=== PATIENT | female | born 1975 | race Caucasian/White ===

== ENCOUNTER 2021-01-18 05:32 | Emergency (ER) | payer BC, SELFPAY ==
--- NOTE | ~2021-01-18 | XR_ITS ---
EXAMINATION: XR CHEST CLINICAL INFORMATION: Chest pain/pressure COMPARISON: None TECHNIQUE: Frontal view of the chest was obtained. FINDINGS: Cardiac leads overlie the chest. The lungs are well expanded. There is no focal consolidation, edema, or effusion. No pneumothorax. The cardiomediastinal silhouette is within normal limits. No acute osseous abnormality. XR/XR chest 1V IMPRESSION: Clear lungs.
[2021-01-18 05:40] VITALS: BP 129/94; PULSE 83; RESP 18; TEMP 36.9; O2SAT 96; BMI 31.8
--- NOTE | 2021-01-18 05:45 | ED.CHESTPAIN ---
HPI - Chest Pain General Chief Complaint: Chest Pain Stated Complaint: Chest pain Time Seen by Provider: 01/18/21 05:45 Related Data Allergies Allergy/AdvReac Type Severity Reaction Status Date / Time latex [LATEX] Allergy Intermediate HIVES,SWELL Unverified 08/08/20 14:58 ING bactrim Allergy Unknown hives Uncoded 04/11/14 00:00 PMFSH Past Medical History Medical History (Updated 01/18/21 @ 05:43 by Aminah Gordon) High cholesterol Surgical History (Updated 01/18/21 @ 05:43 by Aminah Gordon) Previous section Physical Exam Vital Signs: Vital Signs: Last Vital Signs Temp 98.4 F 01/18/21 05:40 Pulse 83 01/18/21 05:40 Resp 18 01/18/21 05:40 BP 129/94 H 01/18/21 05:40 Pulse Ox 96 01/18/21 05:40 Body Mass Index 31.8 Course Course Course Narrative: No strain patterns consistent with PE. MDM - Chest Pain ECG Data ECG #1: Attestation: I personally reviewed and interpreted this ECG as follows: Prior ECG tracings: not available for review Interpretation: Normal sinus rhythm, HR-96, no evidence of acute ischemia, IA/QRS/QTC are within normal limits.
--- NOTE | 2021-01-18 05:46 | ECG_ITS ---
Test Reason : CHEST PAIN Blood Pressure : / mmHG Vent. Rate : 096 BPM Atrial Rate : 096 BPM P-R Int : 166 ms QRS Dur : 086 ms QT Int : 364 ms P-R-T Axes : 059 058 051 degrees QTc Int : 459 ms Sinus rhythm with frequent Premature ventricular complexes Otherwise normal ECG No previous ECGs available Referred By: Generic ED Physician Electronically Signed By:VILMA SURESH MD
[2021-01-18 06:03] LABS: Basophils Absolute Auto 0.1 X10*3/uL (0.0-0.2); Basophils Percent Auto 0.7 % (0-2); Eosinophils Absolute Auto 0.4 X10*3/uL (0.0-0.4); Eosinophils Percent Auto 4.2 % (0-4); Hematocrit 37.4 % (37-47); Hemoglobin 12.7 g/dl (12.0-16.0); Imm Gran Abs Auto 0.04 X10*3/uL (0.00-0.03); Imm Gran Pct Auto 0.4 % (0.0-0.4); Lymphocytes Absolute Auto 1.6 X10*3/uL (1.2-4.9); Lymphocytes Percent Auto 17.8 % (20-40); MANUAL DIFF FLAG NO; Mean Corpuscular Hemoglobin 30.8 pg (27.0-33.0); Mean Corpuscular Volume 90.6 fL (80-98); Monocytes Absolute Auto 0.8 X10*3/uL (0.1-1.2); Monocytes Percent Auto 8.9 % (2-11); Neutrophils Absolute Auto 6.1 X10*3/uL (2.0-8.3); Platelet Count 337 X10*3/uL (160-400); Red Blood Count 4.13 X10*6/uL (4.20-5.50); Red Cell Distribution Width 13.1 % (11.0-16.0)
[2021-01-18 06:28] LABS: Anion Gap 13 (12-20); Blood Urea Nitrogen 13 mg/dL (9-16); Calcium 9.1 mg/dL (8.4-10.2); Carbon Dioxide 27 mmol/L (22-29); Chloride 103 mmol/L (96-108); Creatinine Clr Calc Pharmacy 97.8; Estimated Glomerular Filt Rate > 60; Glucose Random 112 mg/dL (60-115); Potassium 3.8 mmol/L (3.3-5.1); Sodium 139 mmol/L (135-145)
[2021-01-18 06:42] LABS: Troponin-I High Sensitivity < 3.5 ng/L (<3.5-17.0)
[2021-01-18] MEDS: Ketorolac Tromethamine 30 MG/ML VIAL IVPUSH (07:11)
[2021-01-18] MEDS: ondansetron HCL 4 MG/2 ML VIAL IVPUSH (07:11)
[2021-01-18 07:20] VITALS: PULSE 88
[2021-01-18 07:21] LABS: HCG Quantitative < 2 mIU/mL
--- NOTE | 2021-01-18 07:22 | PC.NURSE ---
Pt reports mild nausea, mild diffuse abd cramping i think its just I'm hungry . Pt denies CP, SOB and assoisated symptoms at this time. Pending labs
[2021-01-18 07:38] LABS: D Dimer < 200 NG/ML
[2021-01-18 08:31] VITALS: BP 128/71; PULSE 81; RESP 16; TEMP 36.4; O2SAT 99
--- NOTE | 2021-01-18 08:35 | ED.CHESTPAIN ---
HPI - Chest Pain General Chief Complaint: Chest Pain Stated Complaint: Chest pain Time Seen by Provider: 01/18/21 05:45 Source: patient Mode of arrival: ambulatory Limitations: no limitations History of Present Illness HPI narrative: 45-year-old female who presents emergency department for evaluation of right-sided chest pain. She states that the pain woke her up from sleep at 2:00 a.m. this morning. She points to her right anterior chest when she describes this pain. She states the pain is a pressure-like pain that radiates to her back. She states the pain is 10/10 at its worst. The pain is worse with breathing and with movement. She states that she is feeling short of breath but this is intermittent. She denied dyspnea on exertion. She took Aleve at home with no relief for symptoms. At the time of my evaluation she states the pain is 5/10. Patient states that 1 week prior she did have some left calf pain but this resolved. She has not noticed any calf swelling. She denies any long trips, she is not on any control pills. Related Data Home Medications Medication Instructions Recorded Confirmed albuterol sulfate 2 puff INHALATION Q4-6H PRN 01/18/21 01/18/21 hydroxychloroquine 1 tab PO BID 01/18/21 01/18/21 simvastatin 1 tab PO BEDTIME 01/18/21 01/18/21 Allergies Allergy/AdvReac Type Severity Reaction Status Date / Time latex [LATEX] Allergy Intermediate HIVES,SWELL Verified 01/18/21 06:29 ING bactrim Allergy Unknown hives Uncoded 01/18/21 06:29 Review of Systems Review of Systems: Yes all other systems are reviewed and are negative Neurologic: Reports Abnormal speech present [facility] Past Medical History [facility] Narrative: Past medical history significant for high cholesterol, possible rheumatoid arthritis which is under investigation, she denies tobacco, alcohol and drug use. Medical History High cholesterol Surgical History Previous section Social History Social History Alcohol intake: never Smoking Status: Never smoker Use of substances other than those prescribed or required for medical reasons: No Advance Directives: No Physical Exam Vital Signs: Vital Signs: Last Vital Signs Temp 97.6 F 01/18/21 08:31 Pulse 81 01/18/21 08:31 Resp 16 01/18/21 08:31 BP 128/71 01/18/21 08:31 Pulse Ox 99 01/18/21 08:31 Body Mass Index 31.8 Const: General: cooperative and healthy appearing Orientation/consciousness: oriented to person and oriented to place Limitations: no limitations HENMT: Head: Yes normal to inspection, Yes normocephalic and Yes atraumatic Ears: external ears normal General nose exam: Normal external nose present Face and sinus: Yes normal facial exam Mouth: Normal oral and palatal mucosa present Throat: Yes posterior oropharynx normal Eyes: Periorbital: periorbital findings normal Eyelids: Yes eyelids normal Conjunctivae: conjunctivae normal Sclerae: sclerae normal Corneas: corneas normal Pupils: Equal, round and reactive pupils present Direct Ophthalmoscopy: normal light reflex Neck: Neck: Yes full ROM, Yes no lymphadenopathy, Yes no meningeal signs, Yes trachea midline and Yes supple Chest: Chest palpation & inspection: normal inspection of the chest and normal palpation of entire chest wall Resp: Effort & Inspection: normal respiratory effort and able to speak in complete sentences Auscultation: clear to auscultation bilaterally Cardio: Rate: regular rate Rhythm: regular rhythm Heart sounds: S1 normal heart sound present, S2 normal heart sound present and no murmurs GI: Inspection: Yes normal to inspection Palpation (GI): Soft to palpation, nontender, no guarding, not rigid and No hepatosplenomegaly present : General: Yes no CVA tenderness Back/Spine/Pelvis: Back: no CVA tenderness Cervical Spine: normal cervical lordosis Thoracic/Lumbar Spine: thoracic and lumbar spine normal to inspection Skin: Lesions: no lesions Rashes: no rashes Wounds: no wounds Neuro: General: oriented to person, oriented to place and no meningeal signs Cranial nerves: Yes CN's II-XII intact bilaterally and Yes Equal, round and reactive pupils present Cognition (Neuro): normal cognition Speech: Abnormal speech present Motor exam (neuro): 5/5 motor strength present throughout Extrem: General: Yes normal to inspection and Yes full ROM Psych: Appearance: well kempt Mental Status: mental status grossly normal Speech and movement: Normal speech and movement present Affect: normal affect Attitude: cooperative Thought process: Normal thought process present Thought content: Normal thought content present Course Course Course Narrative: 45-year-old female who presents emergency department for evaluation of right-sided chest pain which came on suddenly at 2:00 a.m.. The patient's examination was unremarkable. The patient's laboratory evaluation revealed a nondetectable troponin and non elevated D-dimer. Chest x-ray was unremarkable and 12 EKG was unremarkable as well. The patient's pain is consistent with pleurisy versus costochondritis. I did discuss this with the patient. She was discharged home with verbal and printed instructions. She was advised to take Tylenol and ibuprofen for pain. She was advised to follow up with her doctor in 2 days and return if her symptoms get worse. MDM - Chest Pain Medical Records Data Attestation: I reviewed the patient's medical records. Lab Data Attestation: I reviewed the patient's lab results. Result diagrams: 01/18/21 05:56 01/18/21 05:56 Labs: Lab Results 01/18/21 01/18/21 01/18/21 Range/Units 05:56 05:56 05:56 WBC 9.0 (4.8-10.8) X10*3/uL RBC 4.13 L (4.20-5.50) X10*6/uL Hgb 12.7 (12.0-16.0) g/dl Hct 37.4 (37-47) % MCV 90.6 (80-98) fL MCH 30.8 (27.0-33.0) pg MCHC 34.0 (31.0-35.0) g/dl RDW 13.1 (11.0-16.0) % Plt Count 337 (160-400) X10*3/uL MPV 10.0 (9.4-12.3) fL Immature Gran % (Auto) 0.4 (0.0-0.4) % Neut % (Auto) 68.0 (45-73) % Lymph % (Auto) 17.8 L (20-40) % [place] % (Auto) 8.9 (2-11) % Eos % (Auto) 4.2 H (0-4) % Baso % (Auto) 0.7 (0-2) % Lymph # (Auto) 1.6 (1.2-4.9) X10*3/uL [place] # (Auto) 0.8 (0.1-1.2) X10*3/uL Eos # (Auto) 0.4 (0.0-0.4) X10*3/uL Baso # (Auto) 0.1 (0.0-0.2) X10*3/uL Abs Immat Gran (auto) 0.04 H (0.00-0.03) X10*3/uL Absolute Neuts (auto) 6.1 (2.0-8.3) X10*3/uL Absolute Nucleated RBC 0.000 (0.0-0.012) X10*3/uL Nucleated RBC % (auto) 0.0 (0.0-0.2) /100WBC D-Dimer < 200 NG/ML Hold Blue Top SEE NOTE Sodium 139 (135-145) mmol/L Potassium 3.8 (3.3-5.1) mmol/L Chloride 103 (96-108) mmol/L Carbon Dioxide 27 (22-29) mmol/L Anion Gap 13 (12-20) BUN 13 (9-16) mg/dL Creatinine 0.75 (0.5-1.4) mg/dL Estim Creat Clear Calc 97.8 Estimated GFR > 60 Random Glucose 112 (60-115) mg/dL Calcium 9.1 (8.4-10.2) mg/dL Troponin I High Sens (<3.5-17.0) ng/L Beta HCG, Quant < 2 mIU/mL 01/18/21 Range/Units 05:56 WBC (4.8-10.8) X10*3/uL RBC (4.20-5.50) X10*6/uL Hgb (12.0-16.0) g/dl Hct (37-47) % MCV (80-98) fL MCH (27.0-33.0) pg MCHC (31.0-35.0) g/dl RDW (11.0-16.0) % Plt Count (160-400) X10*3/uL MPV (9.4-12.3) fL Immature Gran % (Auto) (0.0-0.4) % Neut % (Auto) (45-73) % Lymph % (Auto) (20-40) % [place] % (Auto) (2-11) % Eos % (Auto) (0-4) % Baso % (Auto) (0-2) % Lymph # (Auto) (1.2-4.9) X10*3/uL [place] # (Auto) (0.1-1.2) X10*3/uL Eos # (Auto) (0.0-0.4) X10*3/uL Baso # (Auto) (0.0-0.2) X10*3/uL Abs Immat Gran (auto) (0.00-0.03) X10*3/uL Absolute Neuts (auto) (2.0-8.3) X10*3/uL Absolute Nucleated RBC (0.0-0.012) X10*3/uL Nucleated RBC % (auto) (0.0-0.2) /100WBC D-Dimer NG/ML Hold Blue Top Sodium (135-145) mmol/L Potassium (3.3-5.1) mmol/L Chloride (96-108) mmol/L Carbon Dioxide (22-29) mmol/L Anion Gap (12-20) BUN (9-16) mg/dL Creatinine (0.5-1.4) mg/dL Estim Creat Clear Calc Estimated GFR Random Glucose (60-115) mg/dL Calcium (8.4-10.2) mg/dL Troponin I High Sens < 3.5 (<3.5-17.0) ng/L Beta HCG, Quant mIU/mL ECG Data ECG #1: Attestation: I personally reviewed and interpreted this ECG as follows: Interpretation: 0 5 40: Normal sinus rhythm with a rate of 96, occasional PVC, normal [place], QRS and QTC intervals, no ST segment elevation, no ST segment depression, no old EKG for comparison. This is a normal EKG. Discharge Plan Discharge Clinical Impression: Pleurisy Chest pain Qualifiers: Chest pain type: chest pain on breathing Qualified Code(s): R07.1 - Chest pain on breathing Patient Disposition: Home, Self-Care Instructions: Pleurisy (ED), Costochondritis (ED) Additional Instructions: Your laboratory evaluation was normal. Your chest x-ray was normal. Your EKG was unremarkable. Your symptoms and presentation are consistent with pleurisy or costochondritis. These conditions or trauma the same with anti-inflammatory pain medications and rest. Take ibuprofen 200 mg pills, 3 pills every 6 hours as needed for pain. Take Tylenol (acetaminophen) 500 mg pills, 2 pills every 4 to 6 hours as needed for pain. Follow-up with your doctor in 2 days. Please return to the emergency department if your symptoms get worse or if you develop any symptoms that are concerning to you. Prescriptions: No Action simvastatin 40 mg tablet 1 tab PO BEDTIME RF: 0 hydroxychloroquine 200 mg tablet 1 tab PO BID RF: 0 albuterol sulfate 90 mcg/actuation HFA aerosol inhaler 2 puff inhalation Q4-6H PRN (Reason: Dyspnea) RF: 0
== END 2021-01-18 08:52 | disposition home or self-care (01) ==
PROVIDERS: Student in an Organized Health Care Education/Training Program; Emergency Provider Emergency Medicine Emergency Medical Services; PCP Internal Medicine
DX: R09.1 Pleurisy (principal); R07.1 Chest pain on breathing; E78.00 Pure hypercholesterolemia, unspecified; Z79.02 Long term (current) use of antithrombotics/antiplatelets
CPT/HCPCS: 36415; 71045; 80048; 84484; 84702; 85025; 85379; 93005; 96374; 96375; 99284; 99285; J1885; J2405

== ENCOUNTER 2021-06-11 08:23 | Outpatient (REF) | payer BC, SELFPAY ==
--- NOTE | ~2021-06-11 | US_ITS ---
EXAMINATION: US VENOUS ULTRASOUND WITH DOPPLER LOWER EXTREMITY, LEFT CLINICAL INFORMATION: Pain COMPARISON: Previous exam September 2019 TECHNIQUE: Ultrasound of the deep veins is performed from the hip to the calf with compression sonography and color and pulse Doppler assessment. Spectral analysis with color-flow imaging is performed. FINDINGS: There is normal venous compression and respiratory variation and augmented flow. The visualized common femoral vein, superficial femoral vein, profunda femoral vein, popliteal vein, and the trifurcation region shows no evidence of deep venous thrombosis. There is no significant popliteal fossa cyst. US/US venous duplex LE LT IMPRESSION: No DVT demonstrated in the left lower extremity.
== END 2021-06-11 08:24 | disposition home or self-care (01) ==
LOC: HO.US 08:23
PROVIDERS: PCP Internal Medicine; Visit Provider Nurse Practitioner Family
DX: M79.605 Pain in left leg (principal)
CPT/HCPCS: 93971

== ENCOUNTER 2021-07-10 09:56 | Emergency (ER) | payer BC, SELFPAY ==
[2021-07-10 11:04] VITALS: BP 131/88; PULSE 84; RESP 20; TEMP 35.9; O2SAT 98; BMI 31.8
--- NOTE | 2021-07-10 13:54 | ED.SKABFB ---
HPI - Skin/Abscess/Foreign Bdy General Chief complaint: Skin/Abscess/Foreign Body Stated complaint: rash inside of mouth, trouble swolling Time Seen by Provider: 07/10/21 12:52 Source: patient Mode of arrival: ambulatory Limitations: no limitations History of Present Illness HPI narrative: Patient complaining of blister inside the lip for last few days and swelling of the left lower cheek with rash spreading with pain in the left ear last 2 - 3 days seen at urgent care center yesterday started on Valtrex having increased nausea now complaining of pain in the left ear and the rash on the face getting worse no history of MRSA and no fever no ear discharge Related Data Home Medications Medication Instructions Recorded Confirmed albuterol sulfate 90 mcg/actuation 2 puff INHALATION Q4-6H PRN 01/18/21 01/18/21 aerosol inhaler hydroxychloroquine 200 mg tablet 1 tab PO BID 01/18/21 01/18/21 simvastatin 40 mg tablet 1 tab PO BEDTIME 01/18/21 01/18/21 Previous Rx's Medication Instructions Recorded cephalexin 500 mg capsule 500 mg PO QID 10 Days #40 cap 07/10/21 doxycycline hyclate 100 mg tablet 100 mg PO BID #20 tab 07/10/21 lidocaine HCl 2 % mucosal solution 1 appl MUCOUS MEMBRANE QID PRN 07/10/21 (Lidocaine Viscous) #100 ml mupirocin 2 % topical ointment 1 appl TOPICAL TID #22 g 07/10/21 ondansetron 4 mg disintegrating 4 mg PO Q6-8H PRN #7 tab 07/10/21 tablet Allergies Allergy/AdvReac Type Severity Reaction Status Date / Time latex [LATEX] Allergy Intermediate HIVES,SWELL Verified 07/10/21 11:11 ING azithromycin Allergy Hives Verified 07/10/21 11:11 bactrim Allergy Unknown hives Uncoded 07/10/21 11:11 Review of Systems Review of Systems: Yes all other systems are reviewed and are negative PMFSH Past Medical History Medical History High cholesterol Rheumatoid arthritis Surgical History Previous section Social History Social History Alcohol intake: never Advance Directives: Yes Advance Directives Information Provided: Yes Advance Directives on File: No Patient : No Physical Exam Vital Signs: Vital Signs: Last Vital Signs Temp 96.7 F L 07/10/21 11:04 Pulse 84 07/10/21 11:04 Resp 20 07/10/21 11:04 BP 131/88 07/10/21 11:04 Pulse Ox 98 07/10/21 11:04 Body Mass Index 31.8 Const: General: no acute distress and well developed HENMT: Head: Yes normocephalic Ears: hearing grossly normal bilaterally, external ears normal, TM normal on the right, mastoids normal and Abnormal EAC present (Tender to touch unable to examine the tympanic membrane no pus discharge) Face images: 1. Scab covered multiple lesions? Staph infection Mouth: moist mucous membranes and Abnormal oral and palatal mucosa present (Multiple small blisters at the buccal surface of lower lip and left cheek) Throat: Yes posterior oropharynx normal Resp: Effort & Inspection: normal respiratory effort Auscultation: clear to auscultation bilaterally Cardio: Palpation: normal PMI Rate: regular rate Rhythm: regular rhythm Heart sounds: S1 normal heart sound present and S2 normal heart sound present GI: Inspection: Yes normal to inspection Palpation (GI): Soft to palpation and nontender Skin: General skin exam: no rashes or lesions noted Extrem: General: Yes normal to inspection MDM - Skin/Abscess/Foreign Bdy MDM Narrative Medical decision making narrative: Patient likely with MRSA infection with herpes labialis will give her doxycycline Keflex patient is a nontoxic look discharge patient home Discharge Plan Discharge Clinical Impression: MRSA (methicillin resistant Staphylococcus aureus) infection, Herpes labialis Patient Disposition: Home, Self-Care Instructions: MRSA (Methicillin-Resistant Staphylococcus Aureus) (ED), Oral Herpes Simplex Virus Infections (ED) Additional Instructions: Will likely have MRSA infection along with the herpes labialis Take antibiotics and continue Valtrex as prescribed Follow with PCP if not better Prescriptions: New cephalexin 500 mg capsule 500 mg PO QID 10 Days Qty: 40 RF: 0 ondansetron 4 mg tablet,disintegrating 4 mg PO Q6-8H PRN (Reason: nausea and vomiting) Qty: 7 RF: 0 doxycycline hyclate 100 mg tablet 100 mg PO BID Qty: 20 RF: 0 lidocaine HCl [Lidocaine Viscous] 2 % solution 1 appl mucous membrane QID PRN (Reason: pain) Qty: 100 RF: 0 mupirocin 2 % ointment 1 appl topical TID Qty: 22 RF: 0 No Action simvastatin 40 mg tablet 1 tab PO BEDTIME RF: 0 hydroxychloroquine 200 mg tablet 1 tab PO BID RF: 0 albuterol sulfate 90 mcg/actuation HFA aerosol inhaler 2 puff inhalation Q4-6H PRN (Reason: Dyspnea) RF: 0 Stand Alone Forms: Work/School Release
[2021-07-10] MEDS: cephALEXin 500 MG CAPSULE PO (14:11)
[2021-07-10] MEDS: Ibuprofen 600 MG TABLET PO (14:12)
[2021-07-10] MEDS: Ondansetron ODT 4 MG TAB.RAPDIS TRANSLINGU (14:12)
--- NOTE | 2021-07-10 14:21 | PC.NURSE ---
1ST ENCOUNTER WITH PATIENT FOR DC PURPOSES. PT AWAKE, ALERT AND ORIENTED X 3. SKIN WARM AND DRY. SORE TYPE AREAS NOTED TO LEFT SIDE OF MOUTH AND FACE. AIRWAY PATENT. SPEAKING IN FULL CLEAR SENTENCES. NO ACUTE DISTRESS NOTED. PLAN IS FOR DC WITH MEDS. PT AGREEABLE
== END 2021-07-10 14:27 | disposition home or self-care (01) ==
PROVIDERS: Emergency Provider Internal Medicine; PCP Internal Medicine
DX: B00.1 Herpesviral vesicular dermatitis (principal); B95.62 Methicillin resistant Staphylococcus aureus infection as the cause of diseases classified elsewhere; H92.02 Otalgia, left ear
CPT/HCPCS: 99283

== ENCOUNTER 2023-07-19 08:48 | Emergency (ER) | payer BC, SELFPAY ==
--- NOTE | ~2023-07-19 | CT_ITS ---
EXAMINATION: CT ABDOMEN AND PELVIS WITH CONTRAST CLINICAL INFORMATION: Left-sided abdominal pain. COMPARISON: CT scan of the abdomen and pelvis dated 06/02/2009. TECHNIQUE: Multidetector volumetric images were obtained from the superior aspect of the liver through the pubic symphysis following administration 85 mL of Omnipaque 350 intravenous contrast. Sagittal and coronal reformatted images were obtained on the technologist's workstation. Oral contrast: No This CT examination was performed using dose optimization techniques as appropriate, variously including the following: *Automated exposure control *Adjustment of mA and/or kV according to patient size (this includes techniques or standardized protocols for targeted exams where dose is matched to indication/reason for exam; i.e. extremities or head) *Use of iterative reconstruction technique DLP: 435 mGy-cm FINDINGS: LUNG BASES: The visualized lung bases are unremarkable. LIVER, GALLBLADDER, AND BILIARY TREE: Mild diffuse decreased hepatic attenuation without focal abnormality. PANCREAS: Unremarkable. SPLEEN: Unremarkable. ADRENAL GLANDS: Unremarkable. KIDNEYS AND URETERS: Mild left hydroureteronephrosis is seen caused by a 0.2 cm calculus in the distal one third of the left ureter at the level the left hemipelvis (image 69, series 3; image 41, series 5). Several small left intrarenal calculi are seen as well. Tiny cortically based low-attenuation foci in the right kidney are too small adequately characterize, not requiring follow-up at this time. No right hydroureteronephrosis. BLADDER: Unremarkable. GASTROINTESTINAL TRACT: The stomach, small bowel and appendix are unremarkable. The colon and rectum are unremarkable. ABDOMINAL WALL: Very small fat-containing umbilical hernia. LYMPH NODES: No lymphadenopathy. VASCULAR: Unremarkable. PELVIC VISCERA: Retroverted/retroflexed uterus with mild enlargement. A small subserosal fibroid is seen along the posterior fundus measuring 1.6 cm (image 55, series 5). No adnexal abnormality. OSSEOUS STRUCTURES: Transitional anatomy with partial sacralization of L5 and a rudimentary disc at L5-S1. Moderate to severe degenerative disc disease at L4-5 with moderate bilateral neural foraminal narrowing. The remainder of the thoracolumbar spine is unremarkable. CT/CT abdomen pelvis w IV con IMPRESSION: 1. Mild left hydroureteronephrosis caused by a 0.2 cm calculus in the distal one third of the left ureter. Several small nonobstructing left intrarenal calculi are seen as well. 2. Mild hepatic steatosis. 3. Retroverted/retroflexed uterus with mild enlargement and a small subserosal fibroid. 4. L4-5 moderate to severe degenerative disc disease with moderate bilateral neural foraminal narrowing.
[2023-07-19 08:59] VITALS: BP 174/99; PULSE 80; RESP 16; TEMP 37.4; O2SAT 98; BMI 25.9
[2023-07-19 09:17] LABS: MANUAL DIFF FLAG NO
[2023-07-19 09:21] LABS: Basophils Absolute Auto 0.1 X10*3/uL (0.0-0.2); Basophils Percent Auto 0.7 % (0-2); Eosinophils Absolute Auto 0.2 X10*3/uL (0.0-0.4); Eosinophils Percent Auto 1.9 % (0-4); Hematocrit 40.6 % (37.0-47.0); Imm Gran Abs Auto 0.06 X10*3/uL (0.00-0.03); Imm Gran Pct Auto 0.5 % (0.0-0.4); Lymphocytes Absolute Auto 1.3 X10*3/uL (1.2-4.9); Lymphocytes Percent Auto 11.6 % (20-40); Mean Corpuscular HGB Conc 34.5 g/dl (31.0-35.0); Mean Corpuscular Hemoglobin 30.8 pg (27.0-33.0); Mean Corpuscular Volume 89.2 fL (80.0-98.0); Mean Platelet Volume 9.4 fL (9.4-12.3); Monocytes Absolute Auto 0.6 X10*3/uL (0.1-1.2); Monocytes Percent Auto 5.3 % (2-11); Neutrophils Absolute Auto 9.2 x10*3/uL (2.0-8.3); Platelet Count 474 X10*3/uL (160-400); Red Blood Count 4.55 X10*6/uL (4.20-5.50); Red Cell Distribution Width 12.3 % (11.0-16.0); White Blood Count 11.5 X10*3/uL (4.8-10.8)
--- NOTE | 2023-07-19 09:23 | ED_ITS ---
HPI - General Adult General Chief complaint: General Medical Stated complaint: L side back pain Time Seen by Provider: 07/19/23 09:18 Source: patient Mode of arrival: ambulatory Limitations: no limitations History of Present Illness HPI narrative: This is 47 years old female presented to the emergency department with left flank pain which started about 2 weeks ago and now is getting progressively worse. Denies any fever, vomiting, diarrhea. He has history of rheumatoid arthritis and polycystic ovarian syndrome Onset (ago): week(s) (2) Location: abdomen Radiation: non-radiation Severity: moderate Quality: burning Pain Consistency: constant Relieving factors: none Exacerbating factors: none Related Data Home Medications Medication Instructions Recorded Confirmed albuterol sulfate 90 mcg/actuation 2 puff inhalation Q4-6H PRN Dyspnea 01/18/21 01/18/21 aerosol inhaler hydroxychloroquine 200 mg tablet 1 tab PO BID 01/18/21 01/18/21 simvastatin 40 mg tablet 1 tab PO BEDTIME 01/18/21 01/18/21 Previous Rx's Medication Instructions Recorded cephalexin 500 mg capsule 500 mg PO QID 10 days #40 caps 07/10/21 doxycycline hyclate 100 mg tablet 100 mg PO BID #20 tabs 07/10/21 lidocaine HCl 2 % mucosal solution 1 appl mucous membrane QID PRN 07/10/21 (Lidocaine Viscous) pain #100 mL mupirocin 2 % topical ointment 1 appl topical TID #22 grams 07/10/21 ondansetron 4 mg disintegrating 4 mg PO Q6-8H PRN nausea and 07/10/21 tablet vomiting #7 tabs ondansetron 4 mg disintegrating 4 mg PO Q8H 4 days #12 tabs 07/19/23 tablet oxycodone 5 mg tablet 5 mg PO Q6H PRN pain #15 tabs 07/19/23 tamsulosin 0.4 mg capsule (Flomax) 0.4 mg PO DAILY #7 caps 07/19/23 Allergies Allergy/AdvReac Type Severity Reaction Status Date / Time latex [LATEX] Allergy Intermediate HIVES,SWELL Verified 07/19/23 08:58 ING azithromycin Allergy Hives Verified 07/19/23 08:58 clindamycin Allergy Rash Verified 07/19/23 08:58 bactrim Allergy Unknown hives Uncoded 07/19/23 08:58 Review of Systems Constitutional: Constitutional: Reports no additional constitutional comp laints ENT: Reports system reviewed and no additional complaints, except as documented Cardiovascular: Cardiovascular: Reports no additional cardiovascular complaints Respiratory: Respiratory: Reports no additional respiratory complaints Gastrointestinal: Gastrointestinal: Reports abdominal pain PMFSH Past Medical History Attestation statement: The following information was validated with the patient. Medical History High cholesterol Rheumatoid arthritis Surgical History Previous section Social History Social History Alcohol intake: current Alcohol intake frequency: holidays/special occasions only Smoked in Last 30 Days: No Use of substances other than those prescribed or required for medical reasons: No Advance Directives: Yes Advance Directives Information Provided: No Advance Directives on File: No Patient : No Physical Exam ED Vital Signs: Vital Signs - 24 hr 07/19/23 08:59 Temperature 99.3 F Pulse Rate 80 Respiratory Rate 16 Blood Pressure 174/99 H Pulse Oximetry 98 Oxygen Delivery Method Room Air BMI result Body Mass Index 25.9 Const General: cooperative Nutritional Appearance: well nourished Orientation/consciousness: patient oriented x3 Limitations: no limitations HENMT Head: Yes normal to inspection General nose exam: Normal external nose present Face and sinus: Yes normal facial exam Mouth: Normal oral and palatal mucosa present Neck Neck: Yes normal visual inspection Thyroid: Thyroid normal Chest Chest palpation & inspection: normal inspection of the chest Resp Effort & Inspection: normal respiratory effort Auscultation: clear to auscultation bilaterally Cardio Jugular venous distension: no JVD Rate: regular rate Rhythm: regular rhythm GI Inspection: Yes normal to inspection Palpation (GI): Soft to palpation, not firm, nontender and no guarding Auscultation: normal bowel sounds Skin General skin exam: no rashes or lesions noted Lesions: no lesions Rashes: no rashes Neuro General: patient oriented x3 Cranial nerves: Yes CN's II-XII intact bilaterally Motor exam (neuro): 5/5 motor strength present throughout Course Course Course Narrative: Patient was re-examined 13:30 she is doing much better at this point will discharge the patient home Medications Administered Discontinued Medications Generic Name Dose Route Start Last Admin Trade Name Freq PRN Reason Stop Dose Admin Hydromorphone HCl 0.5 mg 07/19/23 11:12 07/19/23 11:31 Hydromorphone Hcl 0.5 Mg/0.5 Ml Syringe IVPUSH 07/19/23 11:13 0.5 mg ONCE ONE Administration Protocol Iohexol 100 ml 07/19/23 10:21 07/19/23 10:22 Iohexol 350 Mg/Ml 100 Ml Infus..Btl IV 07/19/23 10:22 85 ml ONCE ONE Administration Ketorolac Tromethamine 15 mg 07/19/23 09:21 07/19/23 09:44 Ketorolac Tromethamine 15 Mg/Ml Vial IVPUSH 07/19/23 09:22 15 mg ONCE ONE Administration Metoclopramide HCl 10 mg 07/19/23 11:12 07/19/23 11:31 Metoclopramide Hcl 10 Mg/2 Ml Vial IVPUSH 07/19/23 11:13 10 mg ONCE ONE Administration Morphine Sulfate 4 mg 07/19/23 10:29 07/19/23 10:36 Morphine Sulfate 4 Mg/Ml Cartridge IVPUSH 07/19/23 10:30 4 mg ONCE ONE Administration Protocol Ondansetron HCl 4 mg 07/19/23 10:29 07/19/23 10:36 Ondansetron Hcl 4 Mg/2 Ml Vial IVPUSH 07/19/23 10:30 4 mg ONCE ONE Administration Medical Decision Making Medical Decision Making [facility] Narrative: Patient presented with 2 weeks history of left abdominal pain will obtain labs, urine, CT scan of the abdomen and pelvis and and then reassess @1:30 PM asyntomatic no pain Differential Diagnosis Differential Diagnoses: The differential diagnosis associated with the presentation includes The differential diagnosis is broad it includes the kidney stone/colitis/diverticulitis Admission/Observation Consideration of admission/observation: Escalation of care including admission/observation considered Lab Data [facility] Lab Attestation statement: I reviewed the patient's lab results. 07/19/23 09:10 07/19/23 09:10 Labs: Lab Results 07/19/23 07/19/23 07/19/23 Range/Units 09:10 09:10 09:51 WBC 11.5 H (4.8-10.8) X10*3/uL RBC 4.55 (4.20-5.50) X10*6/uL Hgb 14.0 (12.0-16.0) g/dl Hct 40.6 (37.0-47.0) % MCV 89.2 (80.0-98.0) fL MCH 30.8 (27.0-33.0) pg MCHC 34.5 (31.0-35.0) g/dl RDW 12.3 (11.0-16.0) % Plt Count 474 H (160-400) X10*3/uL MPV 9.4 (9.4-12.3) fL Immature Gran % (Auto) 0.5 H (0.0-0.4) % Neut % (Auto) 80.0 H (45-73) % Lymph % (Auto) 11.6 L (20-40) % [place] % (Auto) 5.3 (2-11) % Eos % (Auto) 1.9 (0-4) % Baso % (Auto) 0.7 (0-2) % Lymph # (Auto) 1.3 (1.2-4.9) X10*3/uL [place] # (Auto) 0.6 (0.1-1.2) X10*3/uL Eos # (Auto) 0.2 (0.0-0.4) X10*3/uL Baso # (Auto) 0.1 (0.0-0.2) X10*3/uL Abs Immat Gran (auto) 0.06 H (0.00-0.03) X10*3/uL Absolute Neuts (auto) 9.2 H (2.0-8.3) x10*3/uL Absolute Nucleated RBC 0.000 (0.0-0.012) X10*3/uL Nucleated RBC % (auto) 0.0 (0.0-0.2) /100WBC Sodium 140 (135-145) mmol/L Potassium 3.9 (3.3-5.1) mmol/L Chloride 106 (96-108) mmol/L Carbon Dioxide 26 (22-29) mmol/L Anion Gap 12 (12-20) BUN 13 (9-16) mg/dL Creatinine 0.74 (0.5-1.4) mg/dL Estim Creat Clear Calc 87.9 Estimated GFR > 60 Random Glucose 102 (60-115) mg/dL Calcium 9.4 (8.4-10.2) mg/dL Total Bilirubin 0.6 (0.0-1.0) mg/dL AST 13 (5-31) U/L ALT 11 (0-31) U/L Alkaline Phosphatase 55 (39-117) U/L Total Protein 7.3 (6.5-8.0) g/dL Albumin 4.1 (3.5-5.0) g/dL Urine Color Yellow Urine Appearance Cloudy Urine pH 5.5 (5.0-9.0) Ur Specific [place] >= 1.030 H (1.005-1.025) Urine Protein 30 (1+) H (Neg-Trace) mg/dL Urine Glucose (UA) Negative (Negative) mg/dL Urine Ketones Trace (Negative) mg/dL Urine Blood Large (3+) H (Negative) Urine Nitrite Negative (Negative) Ur Leukocyte Esterase Small (1+) H (Negative) Urine RBC >20 H (0-2) /HPF Urine WBC 0-5 (0-5) /HPF Ur Squamous Epith Cells 0-2 (0-2) /HPF Urine Bacteria None Seen (None Seen) Hyaline Casts 0-2 (0-2) /LPF Urine Test (NEGATIVE) 07/19/23 Range/Units 09:51 WBC (4.8-10.8) X10*3/uL RBC (4.20-5.50) X10*6/uL Hgb (12.0-16.0) g/dl Hct (37.0-47.0) % MCV (80.0-98.0) fL MCH (27.0-33.0) pg MCHC (31.0-35.0) g/dl RDW (11.0-16.0) % Plt Count (160-400) X10*3/uL MPV (9.4-12.3) fL Immature Gran % (Auto) (0.0-0.4) % Neut % (Auto) (45-73) % Lymph % (Auto) (20-40) % [place] % (Auto) (2-11) % Eos % (Auto) (0-4) % Baso % (Auto) (0-2) % Lymph # (Auto) (1.2-4.9) X10*3/uL [place] # (Auto) (0.1-1.2) X10*3/uL Eos # (Auto) (0.0-0.4) X10*3/uL Baso # (Auto) (0.0-0.2) X10*3/uL Abs Immat Gran (auto) (0.00-0.03) X10*3/uL Absolute Neuts (auto) (2.0-8.3) x10*3/uL Absolute Nucleated RBC (0.0-0.012) X10*3/uL Nucleated RBC % (auto) (0.0-0.2) /100WBC Sodium (135-145) mmol/L Potassium (3.3-5.1) mmol/L Chloride (96-108) mmol/L Carbon Dioxide (22-29) mmol/L Anion Gap (12-20) BUN (9-16) mg/dL Creatinine (0.5-1.4) mg/dL Estim Creat Clear Calc Estimated GFR Random Glucose (60-115) mg/dL Calcium (8.4-10.2) mg/dL Total Bilirubin (0.0-1.0) mg/dL AST (5-31) U/L ALT (0-31) U/L Alkaline Phosphatase (39-117) U/L Total Protein (6.5-8.0) g/dL Albumin (3.5-5.0) g/dL Urine Color Urine Appearance Urine pH (5.0-9.0) Ur Specific [place] (1.005-1.025) Urine Protein (Neg-Trace) mg/dL Urine Glucose (UA) (Negative) mg/dL Urine Ketones (Negative) mg/dL Urine Blood (Negative) Urine Nitrite (Negative) Ur Leukocyte Esterase (Negative) Urine RBC (0-2) /HPF Urine WBC (0-5) /HPF Ur Squamous Epith Cells (0-2) /HPF Urine Bacteria (None Seen) Hyaline Casts (0-2) /LPF Urine Test NEGATIVE (NEGATIVE) Independent Interpretation I performed an independent interpretation of an: CT Scan Interpretation: left uretheral stone Radiology Impression Discussion of test interpretation with radiology: I have reviewed the radiologist's reading. Radiologist Impression: [address] [place] [address] CT Scan Report Signed Patient: Yazmin Hay MR#: [id number] : 1975 Acct:[id number] Age/Sex: 47 / F ADM Date: 07/19/23 Loc: HO.ED Attending Dr: Ordering Physician: Jeffry Martinez MD Date of Service: 07/19/23 Procedure(s): CT abdomen pelvis w IV con Accession Number(s): [id number] cc: Jeffry Martinez MD~ EXAMINATION: CT ABDOMEN AND PELVIS WITH CONTRAST? CLINICAL INFORMATION: Left-sided abdominal pain.? COMPARISON: CT scan of the abdomen and pelvis dated 06/02/2009. TECHNIQUE: Multidetector volumetric images were obtained from the superior aspect of the liver through the pubic symphysis following administration 85 mL of Omnipaque 350 intravenous contrast. Sagittal and coronal reformatted images were obtained on the technologist's workstation.? Oral contrast: No This CT examination was performed using dose optimization techniques as appropriate, variously including the following: *Automated exposure control *Adjustment of mA and/or kV according to patient size (this includes techniques or standardized protocols for targeted exams where dose is matched to indication/reason for exam; i.e. extremities or head) *Use of iterative reconstruction technique DLP: 435 mGy-cm FINDINGS: LUNG BASES: The visualized lung bases are unremarkable.? LIVER, GALLBLADDER, AND BILIARY TREE: Mild diffuse decreased hepatic attenuation without focal abnormality. PANCREAS: Unremarkable.? SPLEEN: Unremarkable.? ADRENAL GLANDS: Unremarkable.? KIDNEYS AND URETERS: Mild left hydroureteronephrosis is seen caused by a 0.2 cm calculus in the distal one third of the left ureter at the level the left hemipelvis (image 69, series 3; image 41, series 5). Several small left intrarenal calculi are seen as well. Tiny cortically based low-attenuation foci in the right kidney are too small adequately characterize, not requiring follow-up at this time. No right hydroureteronephrosis. BLADDER: Unremarkable.? GASTROINTESTINAL TRACT: The stomach, small bowel and appendix are unremarkable. The colon and rectum are unremarkable.? ABDOMINAL WALL: Very small fat-containing umbilical hernia.? LYMPH NODES: No lymphadenopathy. VASCULAR: Unremarkable. PELVIC VISCERA: Retroverted/retroflexed uterus with mild enlargement. A small subserosal fibroid is seen along the posterior fundus measuring 1.6 cm (image 55, series 5). No adnexal abnormality.? OSSEOUS STRUCTURES: Transitional anatomy with partial sacralization of L5 and a rudimentary disc at L5-S1. Moderate to severe degenerative disc disease at L4-5 with moderate bilateral neural foraminal narrowing. The remainder of the thoracolumbar spine is unremarkable.? CT/CT abdomen pelvis w IV con IMPRESSION: 1.? Mild left hydroureteronephrosis caused by a 0.2 cm calculus in the distal one third of the left ureter. Several small nonobstructing left intrarenal calculi are seen as well. 2.? Mild hepatic steatosis. 3.? Retroverted/retroflexed uterus with mild enlargement and a small subserosal fibroid. 4.? L4-5 moderate to severe degenerative disc disease with moderate bilateral neural foraminal narrowing. ? ? Prescription Management I considered prescription management with: Pain Medication Discharge Plan Discharge Clinical Impression: Renal colic Patient Disposition: Home, Self-Care Instructions: Renal Colic (ED) Additional Instructions: Follow-up with your primary care physician also we gave you the number of the urologist, call the Urology make an appointment return to the emergency room if fever, vomiting, worse Prescriptions: New tamsulosin [Flomax] 0.4 mg capsule 0.4 mg PO DAILY Qty: 7 0RF ondansetron 4 mg tablet,disintegrating 4 mg PO Q8H 4 Days Qty: 12 0RF oxycodone 5 mg tablet 5 mg PO Q6H PRN (Reason: pain) Qty: 15 0RF Rx Instructions: partial filing upon pt request; Partial Fill upon patient request. No Action cephalexin 500 mg capsule 500 mg PO QID 10 Days Qty: 40 0RF ondansetron 4 mg tablet,disintegrating 4 mg PO Q6-8H PRN (Reason: nausea and vomiting) Qty: 7 0RF doxycycline hyclate 100 mg tablet 100 mg PO BID Qty: 20 0RF lidocaine HCl [Lidocaine Viscous] 2 % solution 1 appl mucous membrane QID PRN (Reason: pain) Qty: 100 0RF mupirocin 2 % ointment 1 appl topical TID Qty: 22 0RF simvastatin 40 mg tablet 1 tab PO BEDTIME hydroxychloroquine 200 mg tablet 1 tab PO BID albuterol sulfate 90 mcg/actuation HFA aerosol inhaler 2 puff inhalation Q4-6H PRN (Reason: Dyspnea) Referrals: Jonathan Jones MD [Physician] - 2 days Interventions: ED Discharge Assessment Last Done: 07/19/23 14:41 Discharge Date/Time: 07/19/23 14:42
[2023-07-19 09:35] LABS: Alanine Aminotransferase 11 U/L (0-31); Albumin Level 4.1 g/dL (3.5-5.0); Alkaline Phosphatase 55 U/L (39-117); Anion Gap 12 (12-20); Aspartate Amino Transferase 13 U/L (5-31); Bilirubin Total 0.6 mg/dL (0.0-1.0); Blood Urea Nitrogen 13 mg/dL (9-16); Calcium 9.4 mg/dL (8.4-10.2); Carbon Dioxide 26 mmol/L (22-29); Chloride 106 mmol/L (96-108); Creatinine Clr Calc Pharmacy 87.9; Estimated Glomerular Filt Rate > 60; Glucose Random 102 mg/dL (60-115); Potassium 3.9 mmol/L (3.3-5.1); Sodium 140 mmol/L (135-145); Total Protein 7.3 g/dL (6.5-8.0)
[2023-07-19] MEDS: Ketorolac Tromethamine 15 MG/ML VIAL IVPUSH (09:44)
[2023-07-19 09:59] LABS: Appearance Urine Cloudy; Color Urine Yellow; Glucose Urine UA Negative (Negative); Leukocyte Esterase Urine Small (1+) (Negative); Nitrite Urine Negative (Negative); PH 5.5 (5.0-9.0); Specific Gravity - Urine >= 1.030 (1.005-1.025); UMIC TRIGGER UACC YES; Urine Blood Large (3+) (Negative); Urine Ketones Trace mg/dL (Negative); Urine Protein 30 (1+) mg/dL (Neg-Trace)
[2023-07-19 10:00] LABS: UPreg QC Valid YES; Urine Pregnancy NEGATIVE (NEGATIVE)
[2023-07-19 10:11] LABS: Bacteria Urine None Seen (None Seen); Hyaline Casts Urine 0-2 /LPF (0-2); RBC Urine >20 /HPF (0-2); Squamous Epithelial Cell Urine 0-2 /HPF (0-2); UACC Culture Trigger YES; WBC Urine 0-5 /HPF (0-5)
[2023-07-19] MEDS: iohexoL 350 MG/ML 100 ML INFUS..BTL IV (10:22)
[2023-07-19] MEDS: Morphine Sulfate 4 MG/ML CARTRIDGE IVPUSH (10:36)
[2023-07-19] MEDS: ondansetron HCL 4 MG/2 ML VIAL IVPUSH (10:36)
[2023-07-19] MEDS: Metoclopramide HCl 10 MG/2 ML VIAL IVPUSH (11:31)
[2023-07-19] MEDS: HYDROmorphone HCl 0.5 MG/0.5 ML SYRINGE IVPUSH (11:31)
== END 2023-07-19 14:42 | disposition home or self-care (01) ==
PROVIDERS: Emergency Provider Emergency Medicine; PCP Internal Medicine
DX: N23 Unspecified renal colic (principal); E28.2 Polycystic ovarian syndrome; Z79.899 Other long term (current) drug therapy
CPT/HCPCS: 36415; 74177; 80053; 81001; 81025; 85025; 87086; 87147; 96374; 96375; 99284; J1170; J1885; J2270; J2405; J2765; Q9967

== ENCOUNTER 2023-07-20 16:09 | Emergency (ER) | payer BC, SELFPAY ==
[2023-07-20 16:40] VITALS: BP 143/95; PULSE 82; RESP 20; TEMP 36.6; O2SAT 99; BMI 25.5
--- NOTE | 2023-07-20 16:40 | ED_ITS ---
HPI - General Adult General Chief complaint: Nausea/Vomiting/Diarrhea Stated complaint: kidney stones Related Data Home Medications Medication Instructions Recorded Confirmed albuterol sulfate 90 mcg/actuation 2 puff inhalation Q4-6H PRN Dyspnea 01/18/21 01/18/21 aerosol inhaler hydroxychloroquine 200 mg tablet 1 tab PO BID 01/18/21 01/18/21 simvastatin 40 mg tablet 1 tab PO BEDTIME 01/18/21 01/18/21 Previous Rx's Medication Instructions Recorded cephalexin 500 mg capsule 500 mg PO QID 10 days #40 caps 07/10/21 doxycycline hyclate 100 mg tablet 100 mg PO BID #20 tabs 07/10/21 lidocaine HCl 2 % mucosal solution 1 appl mucous membrane QID PRN 07/10/21 (Lidocaine Viscous) pain #100 mL mupirocin 2 % topical ointment 1 appl topical TID #22 grams 07/10/21 ondansetron 4 mg disintegrating 4 mg PO Q6-8H PRN nausea and 07/10/21 tablet vomiting #7 tabs ondansetron 4 mg disintegrating 4 mg PO Q8H 4 days #12 tabs 07/19/23 tablet oxycodone 5 mg tablet 5 mg PO Q6H PRN pain #15 tabs 07/19/23 tamsulosin 0.4 mg capsule (Flomax) 0.4 mg PO DAILY #7 caps 07/19/23 Allergies Allergy/AdvReac Type Severity Reaction Status Date / Time latex [LATEX] Allergy Intermediate HIVES,SWELL Verified 07/19/23 08:58 ING azithromycin Allergy Hives Verified 07/19/23 08:58 clindamycin Allergy Rash Verified 07/19/23 08:58 bactrim Allergy Unknown hives Uncoded 07/19/23 08:58 PMFSH Past Medical History Medical History High cholesterol Rheumatoid arthritis Surgical History Previous section Social History Social History Alcohol intake: current Alcohol intake frequency: holidays/special occasions only Advance Directives: No Advance Directives Information Provided: No Physical Exam ED Vital Signs: BMI result Body Mass Index 25.5 Course Course Course Narrative: This is a rapid medical exam: Additional HPI, ROS, PE not included below will be deferred to primary provider. Patient is a 47y/o female presenting to the ED with complaint of persistent nausea and vomiting as well as left flank pain. Was seen in this ED yesterday and dx with 2mm calculus to left ureter and d/c'd home. Patient reports has been unable to keep anything down. Has been prescribed zofran without relief. Plan: repeat basic labs Medical Decision Making Lab Data 07/20/23 17:02 07/20/23 17:02 Labs: Lab Results 07/20/23 07/20/23 Range/Units 17:02 17:02 WBC 17.6 H (4.8-10.8) X10*3/uL RBC 4.52 (4.20-5.50) X10*6/uL Hgb 14.0 (12.0-16.0) g/dl Hct 40.1 (37.0-47.0) % MCV 88.7 (80.0-98.0) fL MCH 31.0 (27.0-33.0) pg MCHC 34.9 (31.0-35.0) g/dl RDW 12.4 (11.0-16.0) % Plt Count 415 H (160-400) X10*3/uL MPV 9.5 (9.4-12.3) fL Immature Gran % (Auto) 0.5 H (0.0-0.4) % Neut % (Auto) 89.8 H (45-73) % Lymph % (Auto) 3.5 L (20-40) % [place] % (Auto) 5.6 (2-11) % Eos % (Auto) 0.1 (0-4) % Baso % (Auto) 0.5 (0-2) % Lymph # (Auto) 0.6 L (1.2-4.9) X10*3/uL [place] # (Auto) 1.0 (0.1-1.2) X10*3/uL Eos # (Auto) 0.0 (0.0-0.4) X10*3/uL Baso # (Auto) 0.1 (0.0-0.2) X10*3/uL Abs Immat Gran (auto) 0.08 H (0.00-0.03) X10*3/uL Absolute Neuts (auto) 15.8 H (2.0-8.3) x10*3/uL Absolute Nucleated RBC 0.000 (0.0-0.012) X10*3/uL Nucleated RBC % (auto) 0.0 (0.0-0.2) /100WBC Sodium 142 (135-145) mmol/L Potassium 4.2 (3.3-5.1) mmol/L Chloride 106 (96-108) mmol/L Carbon Dioxide 26 (22-29) mmol/L Anion Gap 14 (12-20) BUN 13 (9-16) mg/dL Creatinine 1.06 (0.5-1.4) mg/dL Estim Creat Clear Calc 60.9 Estimated GFR 56 Random Glucose 111 (60-115) mg/dL Calcium 10.0 D (8.4-10.2) mg/dL Discharge Plan Discharge Clinical Impression: Flank pain Patient Disposition: Elopement Prescriptions: No Action cephalexin 500 mg capsule 500 mg PO QID 10 Days Qty: 40 0RF ondansetron 4 mg tablet,disintegrating 4 mg PO Q6-8H PRN (Reason: nausea and vomiting) Qty: 7 0RF doxycycline hyclate 100 mg tablet 100 mg PO BID Qty: 20 0RF lidocaine HCl [Lidocaine Viscous] 2 % solution 1 appl mucous membrane QID PRN (Reason: pain) Qty: 100 0RF mupirocin 2 % ointment 1 appl topical TID Qty: 22 0RF simvastatin 40 mg tablet 1 tab PO BEDTIME hydroxychloroquine 200 mg tablet 1 tab PO BID albuterol sulfate 90 mcg/actuation HFA aerosol inhaler 2 puff inhalation Q4-6H PRN (Reason: Dyspnea) tamsulosin [Flomax] 0.4 mg capsule 0.4 mg PO DAILY Qty: 7 0RF ondansetron 4 mg tablet,disintegrating 4 mg PO Q8H 4 Days Qty: 12 0RF oxycodone 5 mg tablet 5 mg PO Q6H PRN (Reason: pain) Qty: 15 0RF Rx Instructions: partial filing upon pt request; Partial Fill upon patient request. Discharge Date/Time: 07/20/23 21:54
[2023-07-20 17:06] LABS: MANUAL DIFF FLAG NO
[2023-07-20 17:09] LABS: Basophils Absolute Auto 0.1 X10*3/uL (0.0-0.2); Basophils Percent Auto 0.5 % (0-2); Eosinophils Percent Auto 0.1 % (0-4); Hematocrit 40.1 % (37.0-47.0); Imm Gran Abs Auto 0.08 X10*3/uL (0.00-0.03); Imm Gran Pct Auto 0.5 % (0.0-0.4); Lymphocytes Absolute Auto 0.6 X10*3/uL (1.2-4.9); Lymphocytes Percent Auto 3.5 % (20-40); Mean Corpuscular HGB Conc 34.9 g/dl (31.0-35.0); Mean Corpuscular Volume 88.7 fL (80.0-98.0); Mean Platelet Volume 9.5 fL (9.4-12.3); Monocytes Percent Auto 5.6 % (2-11); Neutrophils Absolute Auto 15.8 x10*3/uL (2.0-8.3); Neutrophils Percent Auto 89.8 % (45-73); Platelet Count 415 X10*3/uL (160-400); Red Blood Count 4.52 X10*6/uL (4.20-5.50); Red Cell Distribution Width 12.4 % (11.0-16.0); White Blood Count 17.6 X10*3/uL (4.8-10.8)
[2023-07-20 17:20] LABS: Anion Gap 14 (12-20); Blood Urea Nitrogen 13 mg/dL (9-16); Carbon Dioxide 26 mmol/L (22-29); Chloride 106 mmol/L (96-108); Creatinine Clr Calc Pharmacy 60.9; Estimated Glomerular Filt Rate 56; Glucose Random 111 mg/dL (60-115); Potassium 4.2 mmol/L (3.3-5.1); Sodium 142 mmol/L (135-145)
== END 2023-07-20 21:54 | disposition left against medical advice (07) ==
PROVIDERS: Registered Nurse Emergency; Emergency Provider Emergency Medicine; PCP Internal Medicine
DX: N20.0 Calculus of kidney (principal); R10.9 Unspecified abdominal pain; R11.2 Nausea with vomiting, unspecified; Z79.899 Other long term (current) drug therapy
CPT/HCPCS: 36415; 80048; 85025; 99281; 99283

== ENCOUNTER 2023-12-05 03:54 | Emergency (ER) | payer BC, SELFPAY ==
--- NOTE | ~2023-12-05 | US_ITS ---
EXAMINATION: ULTRASOUND RENAL CLINICAL INFORMATION: Image area right renal colic. COMPARISON: None available. TECHNIQUE: Real-time imaging of the right kidney FINDINGS: RIGHT KIDNEY: 10.0 x 4.4 x 5.5 cm (SAG x AP x TRV). The kidney is normal in size, contour, and echogenicity. Renal cortical thickness is normal. No calculi. No hydronephrosis. Echogenic focus in the right renal interpolar region measuring 0.7 x 0.7 x 0.7 cm without shadowing potentially representing angiomyolipoma. US/US renal RT IMPRESSION: Echogenic focus in the right renal interpolar region measuring 0.7 x 0.7 x 0.7 cm without shadowing potentially representing angiomyolipoma.
[2023-12-05 03:55] VITALS: BP 150/86; PULSE 78; RESP 18; TEMP 36.4; O2SAT 96; BMI 24.9
--- NOTE | 2023-12-05 04:51 | MHC.EDTECH ---
Patient brought into triage area,labs obtained and sent to lab, Patient unable to give a urine sample at this time.
[2023-12-05 05:00] LABS: Basophils Absolute Auto 0.1 X10*3/uL (0.0-0.2); Basophils Percent Auto 0.9 % (0-2); Eosinophils Percent Auto 0.2 % (0-4); Hematocrit 41.1 % (37.0-47.0); Hemoglobin 13.6 g/dl (12.0-16.0); Imm Gran Abs Auto 0.05 X10*3/uL (0.00-0.03); Imm Gran Pct Auto 0.6 % (0.0-0.4); Lymphocytes Absolute Auto 1.5 X10*3/uL (1.2-4.9); Lymphocytes Percent Auto 16.5 % (20-40); MANUAL DIFF FLAG NO; Mean Corpuscular HGB Conc 33.1 g/dl (31.0-35.0); Mean Corpuscular Hemoglobin 29.4 pg (27.0-33.0); Mean Corpuscular Volume 88.8 fL (80.0-98.0); Mean Platelet Volume 9.3 fL (9.4-12.3); Monocytes Absolute Auto 0.6 X10*3/uL (0.1-1.2); Monocytes Percent Auto 6.9 % (2-11); Neutrophils Absolute Auto 6.8 x10*3/uL (2.0-8.3); Neutrophils Percent Auto 74.9 % (45-73); Platelet Count 413 X10*3/uL (160-400); Red Blood Count 4.63 X10*6/uL (4.20-5.50); Red Cell Distribution Width 12.5 % (11.0-16.0)
[2023-12-05 05:14] LABS: Alanine Aminotransferase 14 U/L (0-31); Albumin Level 4.5 g/dL (3.5-5.0); Alkaline Phosphatase 65 U/L (39-117); Anion Gap 14 (12-20); Aspartate Amino Transferase 15 U/L (5-31); Bilirubin Direct 0.2 mg/dL (0.0-0.5); Bilirubin Total 0.5 mg/dL (0.0-1.0); Blood Urea Nitrogen 13 mg/dL (9-16); Calcium 9.6 mg/dL (8.4-10.2); Carbon Dioxide 26 mmol/L (22-29); Chloride 103 mmol/L (96-108); Creatinine Clr Calc Pharmacy 71.3; Estimated Glomerular Filt Rate > 60; Glucose Random 113 mg/dL (60-115); Potassium 3.5 mmol/L (3.3-5.1); Sodium 139 mmol/L (135-145); Total Protein 7.7 g/dL (6.5-8.0)
[2023-12-05 06:17] VITALS: BP 136/75; PULSE 82; RESP 18; TEMP 36.1; O2SAT 98
[2023-12-05 09:05] LABS: HCG Quantitative < 2 mIU/mL
[2023-12-05 09:31] VITALS: BP 121/71; PULSE 68; RESP 18; O2SAT 98
--- NOTE | 2023-12-05 09:43 | ED_ITS ---
HPI - General Adult General Chief complaint: Abdominal Pain Stated complaint: Abd pain Time Seen by Provider: 12/05/23 09:31 History of Present Illness HPI narrative: The patient is a 48-year-old woman who has a history of kidney stones. The patient says that she has had some mild pelvic and right-sided discomfort for the last 2 days. During the night last night however symptoms were much more severe and she felt right flank pain radiating towards her pelvis. She had a sense of pressure in her pelvis but no dysuria or frequency or urgency. The patient says the pain was not nearly as bad as pain with the 2 kidney stones she has had in the past. She is feeling considerably better at the time that I am evaluating her. Her pain seems to have improved spontaneously. The patient most recently had a CT scan of her abdomen and pelvis in June of 2023. At that time there was a left distal ureteral stone. The CT scan had been done with IV contrast. The left kidney was not perfused by contrast and some smaller kidney stones in the left kidney were seen. There was a lot of contrast in the right kidney. No right-sided kidney stones were described but I think the presence of contrast limits the sensitivity in this case. No fever, sweats, chills. No nausea or vomiting. Related Data Home Medications Medication Instructions Recorded Confirmed albuterol sulfate 90 mcg/actuation 2 puff inhalation Q4-6H PRN Dyspnea 01/18/21 01/18/21 aerosol inhaler hydroxychloroquine 200 mg tablet 1 tab PO BID 01/18/21 01/18/21 simvastatin 40 mg tablet 1 tab PO BEDTIME 01/18/21 01/18/21 Previous Rx's Medication Instructions Recorded cephalexin 500 mg capsule 500 mg PO QID 10 days #40 caps 07/10/21 doxycycline hyclate 100 mg tablet 100 mg PO BID #20 tabs 07/10/21 lidocaine HCl 2 % mucosal solution 1 appl mucous membrane QID PRN 07/10/21 (Lidocaine Viscous) pain #100 mL mupirocin 2 % topical ointment 1 appl topical TID #22 grams 07/10/21 ondansetron 4 mg disintegrating 4 mg PO Q6-8H PRN nausea and 07/10/21 tablet vomiting #7 tabs ondansetron 4 mg disintegrating 4 mg PO Q8H 4 days #12 tabs 07/19/23 tablet oxycodone 5 mg tablet 5 mg PO Q6H PRN pain #15 tabs 07/19/23 tamsulosin 0.4 mg capsule (Flomax) 0.4 mg PO DAILY #7 caps 07/19/23 cephalexin 500 mg capsule 500 mg PO BID #10 caps 12/05/23 Allergies Allergy/AdvReac Type Severity Reaction Status Date / Time latex [LATEX] Allergy Intermediate HIVES,SWELL Verified 07/19/23 08:58 ING azithromycin Allergy Hives Verified 07/19/23 08:58 clindamycin Allergy Rash Verified 07/19/23 08:58 bactrim Allergy Unknown hives Uncoded 07/19/23 08:58 PMFSH Past Medical History Onset Date is defined in the Problem List Problems that require an onset date and time if occurred within 24 hrs of arrival to the ED Aortic Dissection and Rupture; Neurologic impairment; Cardiopulmonary Arrest; Endotracheal Intubation; Insertion or Replacement of Mechanical Circulatory Assist Device Medical History High cholesterol Rheumatoid arthritis Surgical History Previous section Social History Social History Alcohol intake: current Alcohol intake frequency: holidays/special occasions only Advance Directives: No Advance Directives Information Provided: No Physical Exam ED Vital Signs: Vital Signs - 24 hr 12/05/23 03:55 12/05/23 06:17 12/05/23 09:31 Temperature 97.5 F 96.9 F Pulse Rate 78 82 68 Respiratory Rate 18 18 18 Blood Pressure 150/86 H 136/75 121/71 Pulse Oximetry 96 98 98 Oxygen Delivery Method Room Air Room Air Room Air BMI result Body Mass Index 24.9 Const Other: The patient is awake, alert, pleasant, cooperative. She did not seem in distress. HENMT Other: The face is symmetrical. ?Mucous membranes moist. Eyes Other: Pupils are round equal, conjunctivae are clear, extraocular movements intact Resp Effort & Inspection: normal respiratory effort Auscultation: clear to auscultation bilaterally Cardio Rate: regular rate Rhythm: regular rhythm GI Other: Abdomen is soft and nontender. No right upper quadrant tenderness. General: Yes no CVA tenderness Back/Spine/Pelvis Back: no CVA tenderness Neuro Other: Awake, alert, oriented, appropriate. Grossly neurologically intact. Extrem Other: No peripheral edema Medical Decision Making Medical Decision Making MDM Narrative: Patient is a 48-year-old woman who says she has had some bladder pressure over the last few days that she felt might be radiating to her back. Early this morning she had significant discomfort in the right flank. She says the discomfort was not nearly as bad as when she has passed a kidney stone in the past. She had some nausea and vomiting when the pain was more severe earlier but none now. She is feeling much better spontaneously. She had a CT scan several months ago that showed a left-sided distal ureteral stone. The CT scan also showed some small stones in the left kidney. It is hard to say if there were any stones in the right kidney because it was a CT with IV contrast and the right kidney has a significant amount of contrast which might obscure small stones. I obtained an ultrasound of the right kidney today that was unremarkable. The patient's urinalysis is moderately positive for a possible UTI. Perhaps the patient passed a small kidney stone. She will be placed on a course of cephalexin in case there is some UTI component to her presentation today. Otherwise the patient looks quite well and may be discharged. Lab Data 12/05/23 04:51 12/05/23 04:51 Labs: Lab Results 12/05/23 12/05/23 Range/Units 04:51 09:28 WBC 9.0 (4.8-10.8) X10*3/uL RBC 4.63 (4.20-5.50) X10*6/uL Hgb 13.6 (12.0-16.0) g/dl Hct 41.1 (37.0-47.0) % MCV 88.8 (80.0-98.0) fL MCH 29.4 (27.0-33.0) pg MCHC 33.1 (31.0-35.0) g/dl RDW 12.5 (11.0-16.0) % Plt Count 413 H (160-400) X10*3/uL MPV 9.3 L (9.4-12.3) fL Immature Gran % (Auto) 0.6 H (0.0-0.4) % Neut % (Auto) 74.9 H (45-73) % Lymph % (Auto) 16.5 L (20-40) % [place] % (Auto) 6.9 (2-11) % Eos % (Auto) 0.2 (0-4) % Baso % (Auto) 0.9 (0-2) % Lymph # (Auto) 1.5 (1.2-4.9) X10*3/uL [place] # (Auto) 0.6 (0.1-1.2) X10*3/uL Eos # (Auto) 0.0 (0.0-0.4) X10*3/uL Baso # (Auto) 0.1 (0.0-0.2) X10*3/uL Abs Immat Gran (auto) 0.05 H (0.00-0.03) X10*3/uL Absolute Neuts (auto) 6.8 (2.0-8.3) x10*3/uL Absolute Nucleated RBC 0.000 (0.0-0.012) X10*3/uL Nucleated RBC % (auto) 0.0 (0.0-0.2) /100WBC Sodium 139 (135-145) mmol/L Potassium 3.5 (3.3-5.1) mmol/L Chloride 103 (96-108) mmol/L Carbon Dioxide 26 (22-29) mmol/L Anion Gap 14 (12-20) BUN 13 (9-16) mg/dL Creatinine 0.92 (0.5-1.4) mg/dL Estim Creat Clear Calc 71.3 Estimated GFR > 60 Random Glucose 113 (60-115) mg/dL Calcium 9.6 (8.4-10.2) mg/dL Total Bilirubin 0.5 (0.0-1.0) mg/dL Direct Bilirubin 0.2 (0.0-0.5) mg/dL AST 15 (5-31) U/L ALT 14 (0-31) U/L Alkaline Phosphatase 65 (39-117) U/L C-Reactive Protein 0.28 (< or = 0.50) mg/dL Total Protein 7.7 (6.5-8.0) g/dL Albumin 4.5 (3.5-5.0) g/dL Beta HCG, Quant < 2 mIU/mL Urine Color Yellow Urine Appearance Cloudy Urine pH 5.5 (5.0-9.0) Ur Specific [place] >= 1.030 H (1.005-1.025) Urine Protein Trace (Neg-Trace) mg/dL Urine Glucose (UA) Negative (Negative) mg/dL Urine Ketones Trace (Negative) mg/dL Urine Blood Large (3+) H (Negative) Urine Nitrite Negative (Negative) Ur Leukocyte Esterase Small (1+) H (Negative) Urine RBC >20 H (0-2) /HPF Urine WBC 6-10 H (0-5) /HPF Ur Squamous Epith Cells 6-10 (0-2) /HPF Urine Bacteria None Seen (None Seen) Hyaline Casts 3-5 (0-2) /LPF Discharge Plan Discharge Clinical Impression: Acute right flank pain Patient Disposition: Home, Self-Care Additional Instructions: I am not certain if you might have passed a small kidney stone. It is a possibility. Your ultrasound of the right kidney does not show any signs of a blockage of the right kidney from a kidney stone nor does it show any obvious kidney stones in the right kidney. Your urinalysis is weakly suggestive of the possibility of a urinary tract infection. I think it would be reasonable for you to take a course of antibiotics for a possible urinary tract infection. I have sent a prescription for cephalexin to your pharmacy. Please take this antibiotic 2 times a day. Please stay in touch with your regular doctor for any additional advice as needed. If at any point you were acutely worse please return to the emergency department. Prescriptions: New cephalexin 500 mg capsule 500 mg PO BID Qty: 10 0RF No Action cephalexin 500 mg capsule 500 mg PO QID 10 Days Qty: 40 0RF ondansetron 4 mg tablet,disintegrating 4 mg PO Q6-8H PRN (Reason: nausea and vomiting) Qty: 7 0RF doxycycline hyclate 100 mg tablet 100 mg PO BID Qty: 20 0RF lidocaine HCl [Lidocaine Viscous] 2 % solution 1 appl mucous membrane QID PRN (Reason: pain) Qty: 100 0RF mupirocin 2 % ointment 1 appl topical TID Qty: 22 0RF simvastatin 40 mg tablet 1 tab PO BEDTIME hydroxychloroquine 200 mg tablet 1 tab PO BID albuterol sulfate 90 mcg/actuation HFA aerosol inhaler 2 puff inhalation Q4-6H PRN (Reason: Dyspnea) tamsulosin [Flomax] 0.4 mg capsule 0.4 mg PO DAILY Qty: 7 0RF ondansetron 4 mg tablet,disintegrating 4 mg PO Q8H 4 Days Qty: 12 0RF oxycodone 5 mg tablet 5 mg PO Q6H PRN (Reason: pain) Qty: 15 0RF Rx Instructions: partial filing upon pt request; Partial Fill upon patient request. Interventions: ED Discharge Assessment Last Done: 12/05/23 13:17 Discharge Date/Time: 12/05/23 13:19
[2023-12-05 09:46] LABS: Appearance Urine Cloudy; Color Urine Yellow; Glucose Urine UA Negative (Negative); Leukocyte Esterase Urine Small (1+) (Negative); Nitrite Urine Negative (Negative); PH 5.5 (5.0-9.0); Specific Gravity - Urine >= 1.030 (1.005-1.025); UMIC TRIGGER UACC YES; Urine Blood Large (3+) (Negative); Urine Ketones Trace mg/dL (Negative); Urine Protein Trace mg/dL (Neg-Trace)
--- NOTE | 2023-12-05 09:47 | PC.NURSE ---
assumed care of this pt at 0900. pt alert and oriented x3, she reports 3/10 L flank pain and pain/burning when she voids. she has hx of kidney stones and says that the symptoms does not feel like the same. urine sent, vss.
[2023-12-05 09:58] LABS: Bacteria Urine None Seen (None Seen); RBC Urine >20 /HPF (0-2); UACC Culture Trigger YES
[2023-12-05 12:12] LABS: C Reactive Protein 0.28 mg/dL (< or = 0.50)
--- NOTE | 2023-12-05 13:20 | PC.NURSE ---
this mortgage loan underwriter went to the pt's room with discharge papers and antibiotic, the pt was not in the room. no personal belongings were in the room. this rn checked the bathrooms and surrounding areas. the pt was not seen in any of the areas.
== END 2023-12-05 13:19 | disposition home or self-care (01) ==
PROVIDERS: Physician Assistant; Emergency Provider Emergency Medicine; PCP Internal Medicine
DX: R10.2 Pelvic and perineal pain (principal); R11.2 Nausea with vomiting, unspecified; Z79.899 Other long term (current) drug therapy
CPT/HCPCS: 36415; 76775; 80048; 80076; 81001; 84702; 85025; 86140; 87086; 99283; 99284

== ENCOUNTER 2025-02-23 19:28 | Emergency (ER) | payer BC, SELFPAY ==
--- NOTE | ~2025-02-23 | CT_ITS ---
CLINICAL HISTORY: Tonsillar abscess? CT soft tissue neck with contrast Comparison: None Findings: Visualized intracranial structures within normal limits. Soft tissues nasopharynx are symmetric. Enlargement of the left palatine tonsil which is heterogeneous with possible 4 mm hypodensity which may represent a very small abscess and additional heterogeneous area which could be artifactual. There is beam hardening artifact in area. Of tissues in the oral cavity are symmetric. Laryngeal structures within normal limits. Bilateral parotid and submandibular glands within. There is a 7 mm hypodense nodule in right thyroid lobe. No adenopathy musculature within normal limits. No consolidation at the lung apices. No acute fractures. Degenerative changes at C5-6 and C6-7 levels. Sinuses are clear IMPRESSION: 1. Enlarged left palatine tonsil consistent with tonsillitis with suspected 4 mm tonsillar abscess. Evaluation of the tonsil is somewhat limited by beam hardening artifact. 2. 7 mm right thyroid hypodense nodule. This document has been electronically signed by: Paula Foster MD on 02/23/2025 22:50:59
[2025-02-23 19:33] VITALS: BP 146/88; PULSE 88; O2SAT 98
[2025-02-23 19:43] VITALS: BP 137/86; PULSE 85; RESP 18; TEMP 36.7; O2SAT 99; BMI 26.4
[2025-02-23 20:23] LABS: Basophils Absolute Auto 0.1 X10*3/uL (0.0-0.2); Basophils Percent Auto 0.3 % (0-2); Eosinophils Percent Auto 0.1 % (0-4); Hematocrit 35.2 % (37.0-47.0); Hemoglobin 12.4 g/dl (12.0-16.0); Imm Gran Abs Auto 0.25 X10*3/uL (0.00-0.03); Imm Gran Pct Auto 1.1 % (0.0-0.4); Lymphocytes Absolute Auto 0.8 X10*3/uL (1.2-4.9); Lymphocytes Percent Auto 3.6 % (20-40); MANUAL DIFF FLAG SCAN; Mean Corpuscular HGB Conc 35.2 g/dl (31.0-35.0); Mean Corpuscular Hemoglobin 30.3 pg (27.0-33.0); Mean Corpuscular Volume 86.1 fL (80.0-98.0); Mean Platelet Volume 9.2 fL (9.4-12.3); Monocytes Absolute Auto 0.8 X10*3/uL (0.1-1.2); Monocytes Percent Auto 3.7 % (2-11); Neutrophils Absolute Auto 19.8 x10*3/uL (2.0-8.3); Neutrophils Percent Auto 91.2 % (45-73); Platelet Count 361 X10*3/uL (160-400); Red Blood Count 4.09 X10*6/uL (4.20-5.50); Red Cell Distribution Width 13.9 % (11.0-16.0); SCAN SMEAR FLAG 1; White Blood Count 21.7 X10*3/uL (4.8-10.8)
[2025-02-23 20:35] LABS: Alanine Aminotransferase 13 U/L (0-31); Albumin Level 3.9 g/dL (3.5-5.0); Alkaline Phosphatase 84 U/L (39-117); Anion Gap 12 (12-20); Aspartate Amino Transferase 20 U/L (5-31); Bilirubin Total 0.7 mg/dL (0.0-1.0); Blood Urea Nitrogen 8 mg/dL (9-16); Calcium 9.1 mg/dL (8.4-10.2); Carbon Dioxide 22 mmol/L (22-29); Chloride 106 mmol/L (96-108); Creatinine Clr Calc Pharmacy 102.6; Estimated Glomerular Filt Rate > 60; Glucose Random 123 mg/dL (60-115); Potassium 3.3 mmol/L (3.3-5.1); Sodium 137 mmol/L (135-145); Total Protein 7.2 g/dL (6.5-8.0)
--- NOTE | 2025-02-23 20:45 | ED.URI ---
HPI - URI/Sore Throat General Chief Complaint: Upper Respiratory Symptoms Stated Complaint: strep throat & tonsil stones, ? abscess in throat Time Seen by Provider: 02/23/25 20:42 Source: patient Mode of arrival: ambulatory Limitations: no limitations History of Present Illness ED Provider: HPI Narrative: Patient's strep pharyngitis on Augmentin since yesterday comes here as having more pain was seen in the urgent care advised to go to the ER to rule out abscess patient is able to swallow no fever no chills Related Data Home Medications ?Medication ?Instructions ?Recorded ?Confirmed albuterol sulfate 90 mcg/actuation 2 puff inhalation Q4-6H PRN Dyspnea 01/18/21 01/18/21 aerosol inhaler hydroxychloroquine 200 mg tablet 1 tab PO BID 01/18/21 01/18/21 simvastatin 40 mg tablet 1 tab PO BEDTIME 01/18/21 01/18/21 Previous Rx's ?Medication ?Instructions ?Recorded cephalexin 500 mg capsule 500 mg PO QID 10 days #40 caps 07/10/21 doxycycline hyclate 100 mg tablet 100 mg PO BID #20 tabs 07/10/21 lidocaine HCl 2 % mucosal solution 1 appl mucous membrane QID PRN 07/10/21 (Lidocaine Viscous) pain #100 mL mupirocin 2 % topical ointment 1 appl topical TID #22 grams 07/10/21 ondansetron 4 mg disintegrating 4 mg PO Q6-8H PRN nausea and 07/10/21 tablet vomiting #7 tabs ondansetron 4 mg disintegrating 4 mg PO Q8H 4 days #12 tabs 07/19/23 tablet oxycodone 5 mg tablet 5 mg PO Q6H PRN pain #15 tabs 07/19/23 tamsulosin 0.4 mg capsule (Flomax) 0.4 mg PO DAILY #7 caps 07/19/23 cephalexin 500 mg capsule 500 mg PO BID #10 caps 12/05/23 Magic Mouthwash 10 ml PO .every 6 hrs prn pain PRN 02/23/25 Diphen/Lido/Antacid 1:1:1 240 mL pain #240 mL suspension cefuroxime axetil 500 mg tablet 500 mg PO BID 7 days #20 tabs 02/23/25 Allergies Allergy/AdvReac Type Severity Reaction Status Date / Time latex [LATEX] Allergy Intermediate HIVES,SWELL Verified 02/23/25 19:46 ING azithromycin Allergy Hives Verified 02/23/25 19:46 clindamycin Allergy Rash Verified 02/23/25 19:46 bactrim Allergy Unknown hives Uncoded 07/19/23 08:58 Review of Systems Review of Systems: Yes all other systems are reviewed and are negative PMFSH Past Medical History Medical History High cholesterol Rheumatoid arthritis Surgical History Previous section Social History Social History Alcohol intake: current Alcohol intake frequency: holidays/special occasions only Physical Exam Vital Signs: Vital Signs: Last Vital Signs Temp 98 F 02/23/25 23:18 Pulse 82 02/23/25 23:18 Resp 16 02/23/25 23:18 BP 143/89 H 02/23/25 23:18 Pulse Ox 99 02/23/25 23:18 O2 Del Method Room Air 02/23/25 23:18 BMI result Body Mass Index 26.4 Appearance: Alert. Oriented X3. No acute distress. Eyes: no pallor or icterus ENT: Enlarged tonsils bilaterally with exudates Oral Mucosa moist Neck: Normal inspection. Neck supple. CVS: Normal heart rate and rhythm. Pulses normal. Respiratory: No respiratory distress. Equal air entry bilateral, no wheezing/rales/rhonchi Abd: soft, not tender Skin: Skin warm and dry. Normal skin color. Normal skin turgor. Extremities: No lower extremity edema, no calf tenderness Neuro: Oriented X 3. Medications Administered Discontinued Medications Generic Name Dose Route Start Last Admin Trade Name Freq PRN Reason Stop Dose Admin Ceftriaxone Sodium 1 gm 02/23/25 20:52 02/23/25 20:59 Ceftriaxone Sodium 1 Gm Vial IVPUSH 02/23/25 20:53 1 gm ONCE ONE Administration Sodium Chloride 1,000 mls @ 999 mls/hr 02/23/25 20:52 02/23/25 22:09 Ns IV 02/23/25 21:52 Infused .Q1H1M ONE Infusion Iohexol 85 ml 02/23/25 21:29 02/23/25 21:30 Iohexol 350 Mg/Ml 100 Ml Infus..Btl IV 02/23/25 21:30 85 ml ONCE ONE Administration Ketorolac Tromethamine 30 mg 02/23/25 20:52 02/23/25 20:59 Ketorolac Tromethamine 30 Mg/Ml Vial IVPUSH 02/23/25 20:53 30 mg ONCE ONE Administration Lidocaine/Diphenhydr/Alum/Mg/Simeth 10 ml 02/23/25 21:59 02/23/25 22:05 Mag&Al/Sim/Diphenhyd/Lidocaine 10 Ml Oral.Susp PO 02/23/25 22:00 10 ml ONCE ONE Administration Protocol Medical Decision Making Medical Decision Making MDM Narrative: Patient has exudative tonsillitis with only 4 mm left tonsillar abscess was received IV fluids and IV Rocephin advised to stop Augmentin as she been vomiting because of penicillin allergy? and prescribe cefuroxime use magic mouthwash and follow up with PCP Lab Data MDM Lab Attestation statement: I reviewed the patient's lab results. 02/23/25 20:16 02/23/25 20:16 Labs: Lab Results 02/23/25 Range/Units 20:16 WBC 21.7 H (4.8-10.8) X10*3/uL RBC 4.09 L (4.20-5.50) X10*6/uL Hgb 12.4 (12.0-16.0) g/dl Hct 35.2 L (37.0-47.0) % MCV 86.1 (80.0-98.0) fL MCH 30.3 (27.0-33.0) pg MCHC 35.2 H (31.0-35.0) g/dl RDW 13.9 (11.0-16.0) % Plt Count 361 (160-400) X10*3/uL MPV 9.2 L (9.4-12.3) fL Immature Gran % (Auto) 1.1 H (0.0-0.4) % Neut % (Auto) 91.2 H (45-73) % Lymph % (Auto) 3.6 L (20-40) % [place] % (Auto) 3.7 (2-11) % Eos % (Auto) 0.1 (0-4) % Baso % (Auto) 0.3 (0-2) % Lymph # (Auto) 0.8 L (1.2-4.9) X10*3/uL [place] # (Auto) 0.8 (0.1-1.2) X10*3/uL Eos # (Auto) 0.0 (0.0-0.4) X10*3/uL Baso # (Auto) 0.1 (0.0-0.2) X10*3/uL Abs Immat Gran (auto) 0.25 H (0.00-0.03) X10*3/uL Absolute Neuts (auto) 19.8 H (2.0-8.3) x10*3/uL Absolute Nucleated RBC 0.000 (0.0-0.012) X10*3/uL Nucleated RBC % (auto) 0.0 (0.0-0.2) /100WBC Smear Tech's Comments VERIFIED Sodium 137 (135-145) mmol/L Potassium 3.3 (3.3-5.1) mmol/L Chloride 106 (96-108) mmol/L Carbon Dioxide 22 (22-29) mmol/L Anion Gap 12 (12-20) BUN 8 L (9-16) mg/dL Creatinine 0.65 (0.5-1.4) mg/dL Estim Creat Clear Calc 102.6 Estimated GFR > 60 Random Glucose 123 H (60-115) mg/dL Calcium 9.1 (8.4-10.2) mg/dL Total Bilirubin 0.7 (0.0-1.0) mg/dL AST 20 (5-31) U/L ALT 13 (0-31) U/L Alkaline Phosphatase 84 (39-117) U/L Total Protein 7.2 (6.5-8.0) g/dL Albumin 3.9 (3.5-5.0) g/dL Radiology Impression Discussion of test interpretation with radiology: I have reviewed the radiologist's reading. Radiologist Impression: [address] [address] [address] Scan Report Signed Patient: Yazmin Hay MR#: [id number] : 1975 Acct:[id number] Age/Sex: 49 / F ADM Date: 02/23/25 Loc: HO.ED Attending Dr: Ordering Physician: Christian oRberts MD Date of Service: 02/23/25 Procedure(s): CT soft tissue neck w IV con Accession Number(s): [id number] cc: GRACE QUIGLEY MD; Christian Roberts MD~ Report Number: [id number]: Total DLP = 422.00 mGy-cm CLINICAL HISTORY: Tonsillar abscess? CT soft tissue neck with contrast Comparison: None Findings: Visualized intracranial structures within normal limits. Soft tissues nasopharynx are symmetric. Enlargement of the left palatine tonsil which is heterogeneous with possible 4 mm hypodensity which may represent a very small abscess and additional heterogeneous area which could be artifactual. There is beam hardening artifact in area. Of tissues in the oral cavity are symmetric. Laryngeal structures within normal limits. Bilateral parotid and submandibular glands within. There is a 7 mm hypodense nodule in right thyroid lobe. No adenopathy musculature within normal limits. No consolidation at the lung apices. No acute fractures. Degenerative changes at C5-6 and C6-7 levels. Sinuses are clear IMPRESSION: 1. Enlarged left palatine tonsil consistent with tonsillitis with suspected 4 mm tonsillar abscess. Evaluation of the tonsil is somewhat limited by beam hardening artifact. 2. 7 mm right thyroid hypodense nodule. This document has been electronically signed by: Paula Foster MD on 02/23/2025 22:50:59 Discharge Plan Discharge Clinical Impression: Pharyngitis Patient Disposition: Home, Self-Care Instructions: Pharyngitis (ED) Additional Instructions: Take antibiotic as prescribed Stop Augmentin you might be allergic to it Aspirin/saline gargles Try magic mouthwash few times a day for the pain Prescriptions: New Magic Mouthwash Diphen/Lido/Antacid 1:1:1 240 mL suspension 10 ml PO .every 6 hrs prn pain PRN (Reason: pain) Qty: 240 0RF Rx Instructions: Lidocaine Viscous 2 % 80mL; diphenhydramine 12.5 mg/5 mL 80mL; aluminum-mag hydrox-simeth [id number]/5mL 80mL cefuroxime axetil 500 mg tablet 500 mg PO BID 7 Days Qty: 20 0RF No Action cephalexin 500 mg capsule 500 mg PO QID 10 Days Qty: 40 0RF ondansetron 4 mg tablet,disintegrating 4 mg PO Q6-8H PRN (Reason: nausea and vomiting) Qty: 7 0RF doxycycline hyclate 100 mg tablet 100 mg PO BID Qty: 20 0RF lidocaine HCl [Lidocaine Viscous] 2 % solution 1 appl mucous membrane QID PRN (Reason: pain) Qty: 100 0RF mupirocin 2 % ointment 1 appl topical TID Qty: 22 0RF simvastatin 40 mg tablet 1 tab PO BEDTIME hydroxychloroquine 200 mg tablet 1 tab PO BID albuterol sulfate 90 mcg/actuation HFA aerosol inhaler 2 puff inhalation Q4-6H PRN (Reason: Dyspnea) tamsulosin [Flomax] 0.4 mg capsule 0.4 mg PO DAILY Qty: 7 0RF ondansetron 4 mg tablet,disintegrating 4 mg PO Q8H 4 Days Qty: 12 0RF oxycodone 5 mg tablet 5 mg PO Q6H PRN (Reason: pain) Qty: 15 0RF Rx Instructions: partial filing upon pt request; Partial Fill upon patient request. cephalexin 500 mg capsule 500 mg PO BID Qty: 10 0RF Interventions: ED Discharge Assessment Last Done: 02/23/25 23:18 Discharge Date/Time: 02/23/25 23:19 Print Language: Tristanian
[2025-02-23 20:50] VITALS: O2SAT 96
[2025-02-23 20:51] LABS: SLIDE REVIEW VERIFIED
[2025-02-23] MEDS: cefTRIAXone sodium 1 GM VIAL IVPUSH (20:59)
[2025-02-23] MEDS: Ketorolac Tromethamine 30 MG/ML VIAL IVPUSH (20:59)
[2025-02-23] MEDS: 0.9 % Sodium Chloride 1,000 ML 999 ML IV (21:00)
--- NOTE | 2025-02-23 21:07 | PC.NURSE ---
provider into assess pt. medicated per mar.
[2025-02-23] MEDS: iohexoL 350 MG/ML 100 ML INFUS..BTL 85 ML IV (21:30)
[2025-02-23] MEDS: Mag&Al/Sim/Diphenhyd/Lidocaine 10 ML ORAL.SUSP PO (22:05)
[2025-02-23 22:21] VITALS: BP 129/86; PULSE 78; RESP 16; O2SAT 98
[2025-02-23 23:08] VITALS: BP 143/89; PULSE 82; RESP 16; TEMP 36.6; O2SAT 99
--- NOTE | 2025-02-23 23:15 | PC.NURSE ---
reviewed pt instructions with pt, pt verbalized understanding, pt able to swallow liquids, no sign of respiratory distress.
[2025-02-23 23:18] VITALS: BP 143/89; PULSE 82; RESP 16; TEMP 36.6; O2SAT 99
== END 2025-02-23 23:19 | disposition home or self-care (01) ==
PROVIDERS: Emergency Provider Internal Medicine; PCP Internal Medicine
DX: J02.9 Acute pharyngitis, unspecified (principal); M54.2 Cervicalgia; R11.10 Vomiting, unspecified; Z79.899 Other long term (current) drug therapy
CPT/HCPCS: 36415; 70491; 80053; 85025; 96361; 96374; 96375; 99284; 99285; J0696; J1885; Q9967

== ENCOUNTER → 2025-02-23 20:52 | Outpatient (BNV) | payer BC, SELFPAY | PROVIDERS: Emergency Provider Internal Medicine; PCP Internal Medicine; Visit Provider Specialist | DX: E04.1 Nontoxic single thyroid nodule (principal); J35.1 Hypertrophy of tonsils | CPT/HCPCS: 70491 ==